=== PATIENT | female | born 1980 | race African-American/Black ===

== ENCOUNTER 2019-05-14 07:42 | Inpatient (IN) ==
[2019-05-14] MEDS ORDERED: OXYTOCIN 30 UNITS/500 ML BAG IV PRN ×2 (07:45→22:26)
[2019-05-14 08:11] LABS: Hematocrit (blood only) 34.7 % (37-47); Hemoglobin 11.4 g/dL (12.0-16.0); Mean Corpuscular Volume 85.3 fL (80-100); Mean Platelet Volume 9.6 fL (7.4-10.4); Platelet Count 369 K/uL (130-400); RDW Coefficient of Variation 14.6 % (11.5-14.5); RDW Standard Deviation 45.3 fL (36.4-46.3); Red Blood Count 4.07 M/uL (4.2-5.4); White Blood Count 11.04 K/uL (4.8-10.8)
[2019-05-14 08:21] LABS: Mean Corpuscular Hgb Conc 32.9 g/dL (32-36)
[2019-05-14] MEDS ORDERED: DINOPROSTONE 10 MG INSERT PV ONE (09:09)
--- NOTE | 2019-05-14 09:13 | Obstetrical Progress Note ---
Date of Service May 14, 2019 Physical Exam Physical Exam: Admit Note 38 F P0000 at 39.2 weeks admitted for induction of labor due to gestational diabetes in insulin. FHt Cat 1. GBS is negative. Cervix 1/50/- 3/vertex/soft/anterior/intact. Will ripen cervix wit Cervidil. Plan for insulin drip while in labor. Results & Data Vital Signs (Past 12 Hours) Vital Signs Temp Pulse Resp BP 05/14/19 08:30 18 05/14/19 07:53 103 H 118/85 05/14/19 07:52 36.9 C 18 05/14/19 07:50 36.9 C 18
[2019-05-14] MEDS ORDERED: SODIUM CHLORIDE 0.9% 1000ML 1,000 ML IV PRN (09:14)
[2019-05-14] MEDS ORDERED: DEXTROSE 50% 50 ML SYRINGE IV PRN (09:14)
--- NOTE | 2019-05-14 09:37 | Obstetrical Progress Note ---
Date of Service May 14, 2019 Physical Exam Physical Exam: Cervidil 10 mg placed vaginally. FHT Cat 1. Results & Data Vital Signs (Past 12 Hours) Vital Signs Temp Pulse Resp BP 05/14/19 08:30 18 05/14/19 07:53 103 H 118/85 05/14/19 07:52 36.9 C 18 05/14/19 07:50 36.9 C 18
[2019-05-14] MEDS: DEXTROSE 5% 1,000 ML IV SCH ×2 (10:35→19:07)
[2019-05-14] MEDS: LACTATED RINGER'S 1,000 ML IV PRN ×3 (13:33→19:04)
[2019-05-14] MEDS ORDERED: TERBUTALINE SULFATE 1 MG/ML VIAL SQ ONE (14:25)
[2019-05-14] MEDS ORDERED: BUPIVACAINE 0.25% 30 ML VIAL ONE (14:28)
[2019-05-14] MEDS ORDERED: ePHEDrine sulfate 50 MG/ML AMP ONE (14:29)
[2019-05-14] MEDS ORDERED: fentaNYL citrate 100 MCG/2 ML VIAL ONE (14:29)
--- NOTE | 2019-05-14 14:29 | Obstetrical Progress Note ---
Date of Service May 14, 2019 Subjective feeling more pain Physical Exam Genitourinary: OB Exam Abdomen: + regular contractions Manual OB Exam: + cervical dilation 3 cm and 4 cm, + cervical effacement 60%, + station high and + amniotic fluid clear OB Exam Monitor Tracing: + external FHT monitor used, + external uterine monitor used, + category II, + normal FHT variability and + variable decelerations Will give Brethine 0.25 mg SQ now fluid bolus re-position on side Results & Data Vital Signs (Past 12 Hours) Vital Signs Temp Pulse Resp BP 05/14/19 13:12 79 127/77 05/14/19 11:27 18 05/14/19 10:30 18 05/14/19 10:00 18 05/14/19 08:30 18 05/14/19 07:53 103 H 118/85 05/14/19 07:52 36.9 C 18 05/14/19 07:50 36.9 C 18
[2019-05-14] MEDS ORDERED: fentaNYL 2MCG/ML ROPIV 1.25MG/ML 100 ML BAG EPI ONE (14:30)
--- NOTE | 2019-05-14 14:43 | Anesthesiology Consultation ---
Date of Service May 14, 2019 Assessment & Plan (1) Encounter for pre-operative examination: Chart Review Chart Review: Acceptable Risk for Labor Epidural History Height/Weight Height: 5 ft 8 in Weight: 104.326 kg Allergies Allergy/AdvReac Type Severity Reaction Status Date / Time amoxicillin Allergy Mild Rash Verified 09/05/18 21:33 Medications Home Medications Medication Instructions Recorded Confirmed Last Taken clindamycin phosphate 1 applic TOPICAL DAILY 05/14/19 05/14/19 05/14/19 insulin glargine 10 unit SUBCUT HS 05/14/19 05/14/19 05/14/19 vit-iron fum-folic ac 1 tab PO DAILY 05/14/19 05/14/19 05/14/19 [ Vitamin] Active Medications Generic Name Dose Route Start Last Admin Trade Name Freq PRN Reason Stop Dose Admin Lactated Ringer's 1,000 mls @ 125 mls/hr 05/14/19 07:45 05/14/19 13:33 Lr IV 05/16/19 07:44 999 mls/hr .Q8H PRN Administration L&D Protocol Protocol Dextrose 1,000 mls @ 100 mls/hr 05/14/19 09:15 05/14/19 10:35 D5w IV 06/13/19 09:14 Not Given .Q10H CATHERINE Protocol NPO Last Intake of Fluids Comment: N/A Date Last Intake of Solids: 05/13/19 Past Medical History Medical History Gestational diabetes No acute medical problems Social History Smoking Status: Never smoker Hx Alcohol Use: No Hx Substance Use: No Physical Exam Vital Signs Last Vital Signs Temp 36.9 C 05/14/19 07:52 Pulse 79 05/14/19 13:12 Resp 18 05/14/19 11:27 BP 127/77 05/14/19 13:12 Testing Laboratory Results 05/14/19 07:54 Blood Type A Positive 05/14/19 07:54 Antibody Screen NEGATIVE 05/14/19 07:54 05/14/19 05/14/19 11:34 08:55 POC Glucose 89 127 H
[2019-05-14] MEDS: INSULIN REGULAR 250 UNITS in SODIUM CHLORIDE 0.9% 247.5 ML IV PRN ×2 (15:06→19:10)
[2019-05-14] MEDS ORDERED: NALOXONE HCL 0.4 MG/1 ML VIAL/CARP IV PRN (15:13)
[2019-05-14] MEDS ORDERED: NALOXONE HCL 1 MG in SODIUM CHLORIDE 0.9% 1000ML 1,000 ML IV PRN (15:13)
[2019-05-14] MEDS ORDERED: fentaNYL 2MCG/ML ROPIV 1.25MG/ML 100 ML BAG EPI PRN (15:13)
[2019-05-14] MEDS ORDERED: ONDANSETRON INJ 2 MG/ML 2 ML VIAL IV PRN (15:13)
[2019-05-14] MEDS ORDERED: ePHEDrine sulfate 50 MG/ML AMP IV PRN (15:13)
--- NOTE | 2019-05-14 19:53 | Obstetrical Progress Note ---
Date of Service May 14, 2019 Physical Exam Genitourinary: Manual OB Exam: + cervical dilation 6 cm, + cervical effacement 100%, + station -1 and + amniotic fluid meconium OB Exam Monitor Tracing: + external FHT monitor used, + external uterine monitor used, + normal FHT variability and + variable decelerations Results & Data Vital Signs (Past 12 Hours) Vital Signs Temp Pulse Resp BP Pulse Ox 05/14/19 19:49 88 106/58 L 05/14/19 19:48 81 100 05/14/19 19:43 81 100 05/14/19 19:38 75 100 05/14/19 19:33 74 100 05/14/19 19:32 75 108/59 L 05/14/19 19:28 79 100 05/14/19 19:23 75 100 05/14/19 19:18 74 112/59 L 100 05/14/19 19:13 76 100 05/14/19 19:08 73 100 05/14/19 19:03 37.0 C 76 18 122/60 100 05/14/19 19:00 18 05/14/19 18:58 75 100 05/14/19 18:53 70 100 05/14/19 18:48 80 100 05/14/19 18:47 85 118/64 05/14/19 18:43 75 100 05/14/19 18:38 74 100 05/14/19 18:34 76 119/56 L 05/14/19 18:33 79 100 05/14/19 18:30 18 05/14/19 18:28 82 100 05/14/19 18:23 78 100 05/14/19 18:18 36.7 C 86 18 122/61 100 05/14/19 18:13 86 100 05/14/19 18:08 94 H 100 05/14/19 18:03 92 H 125/71 100 05/14/19 18:00 18 05/14/19 17:58 86 100 05/14/19 17:53 88 100 05/14/19 17:48 93 H 128/79 100 05/14/19 17:43 96 H 100 05/14/19 17:38 97 H 100 05/14/19 17:33 90 100 05/14/19 17:32 93 H 130/73 05/14/19 17:30 18 05/14/19 17:28 88 100 05/14/19 17:23 93 H 100 05/14/19 17:19 91 H 128/72 05/14/19 17:18 93 H 100 05/14/19 17:13 103 H 100 05/14/19 17:08 98 H 100 05/14/19 17:03 94 H 100 05/14/19 17:02 91 H 117/65 05/14/19 17:00 18 05/14/19 16:58 91 H 100 05/14/19 16:53 88 100 05/14/19 16:48 89 114/65 100 05/14/19 16:43 89 100 05/14/19 16:38 91 H 100 05/14/19 16:34 98 H 128/78 05/14/19 16:33 92 H 100 05/14/19 16:30 18 05/14/19 16:28 103 H 100 05/14/19 16:23 100 H 99 05/14/19 16:19 93 H 134/82 05/14/19 16:18 94 H 100 05/14/19 16:15 36.9 C 05/14/19 16:13 98 H 100 05/14/19 16:08 98 H 100 05/14/19 16:03 95 H 133/80 100 05/14/19 16:00 18 05/14/19 15:58 100 H 100 05/14/19 15:53 95 H 100 05/14/19 15:48 97 H 136/78 100 05/14/19 15:45 18 05/14/19 15:43 93 H 100 05/14/19 15:38 98 H 137/74 100 05/14/19 15:35 96 H 150/70 H 05/14/19 15:33 102 H 100 05/14/19 15:30 18 05/14/19 15:28 94 H 100 05/14/19 15:23 100 H 100 05/14/19 15:18 94 H 100 05/14/19 15:17 94 H 139/72 05/14/19 15:15 96 H 18 133/75 05/14/19 15:13 99 H 100 05/14/19 15:12 100 H 132/80 05/14/19 15:10 18 05/14/19 15:09 96 H 135/81 05/14/19 15:08 103 H 100 05/14/19 15:05 96 H 18 141/77 H 05/14/19 15:03 114 H 100 05/14/19 14:58 101 H 100 05/14/19 14:53 116 H 100 05/14/19 14:15 36.9 C 05/14/19 13:12 79 127/77 05/14/19 11:27 18 05/14/19 10:30 18 05/14/19 10:00 18 05/14/19 08:30 18 05/14/19 07:53 103 H 118/85
[2019-05-14] MEDS ORDERED: HYDROCORTISONE ACETATE 25 MG SUPP PR PRN (22:26)
[2019-05-14] MEDS ORDERED: SUPERCREAM 0.870% 15 GM JAR EXT PRN (22:26)
[2019-05-14] MEDS ORDERED: DIPHTHERIA/TETANUS/PERTUSSIS 0.5 ML SYR/VIAL IM ONE (22:26)
[2019-05-14] MEDS ORDERED: ACETAMINOPHEN 325 MG TAB PO PRN (22:26)
[2019-05-14] MEDS ORDERED: MEASLES, MUMPS & RUBELLA VIRUS VIAL SQ ONE (22:26)
[2019-05-14] MEDS ORDERED: BENZOCAINE 20% AER SPR 82.5 GM CAN EXT PRN (22:26)
[2019-05-14] MEDS ORDERED: BISACODYL 10 MG SUPP PR PRN (22:26)
--- NOTE | 2019-05-14 22:37 | Delivery Summary ---
Vaginal Delivery Summary Date of Service May 14, 2019 Vaginal Delivery Summary Delivery note live male over intact perineum [id number] with delayed cord clamping. Apgars 8/9 weight pending. Cord blood for private donation obtained. Placenta delivered spontaneously and intact. No tears. EBL 250 ml. Final sponge and instrument count are correct. Mom and baby stable.
[2019-05-15 06:43] LABS: Hematocrit (blood only) 29.3 % (37-47); Hemoglobin 9.8 g/dL (12.0-16.0); Mean Corpuscular Hgb Conc 33.4 g/dL (32-36); Mean Corpuscular Volume 85.2 fL (80-100); Mean Platelet Volume 9.6 fL (7.4-10.4); Platelet Count 306 K/uL (130-400); RDW Coefficient of Variation 14.7 % (11.5-14.5); RDW Standard Deviation 45.9 fL (36.4-46.3); Red Blood Count 3.44 M/uL (4.2-5.4); White Blood Count 15.62 K/uL (4.8-10.8)
[2019-05-15] MEDS: FERROUS SULFATE 325 MG TAB PO SCH (07:45)
[2019-05-15] MEDS: PRENATAL VITAMIN 1 TAB PO SCH (07:45)
[2019-05-15] MEDS: DOCUSATE SODIUM 100 MG CAP PO SCH ×2 (07:45→20:25)
[2019-05-15] MEDS ORDERED: CLINDAMYCIN PHOSPHATE TOP SCH (09:00)
[2019-05-15] MEDS ORDERED: NON-FORMULARY MEDICATION (Prenatal Vit-Iron Fum-Folic Ac [Prenatal Vitamin] 1 TAB) PO SCH (09:00)
--- NOTE | 2019-05-15 09:36 | Anesthesia Procedure Note ---
Date of Service May 15, 2019 Anesthesia Post Epidural Note Vital Signs Vital Signs: Temp Pulse Resp BP Pulse Ox 36.7 C 79 18 127/82 99 05/15/19 07:50 05/15/19 07:50 05/15/19 07:50 05/15/19 07:50 05/15/19 07:50 Pain Intensity Abdomen: Pain Intensity: 0 Notes Mental Status: alert / awake / arousable and participated in evaluation Nausea / Vomiting: adequately controlled Pain: adequately controlled Airway Patency, RR, SpO2: stable & adequate BP & HR: stable & adequate Hydration State: stable & adequate Neuraxial Anesthesia: was administered and sensory block is resolving Anesthetic Complications: no major complications apparent and Pt Satisfied with anesthetic care Epidural: Removed without complications and With tip intact
--- NOTE | 2019-05-15 09:41 | Obstetrical Progress Note ---
Date of Service May 15, 2019 Physical Exam Physical Exam: abdomen soft and non tender vaginal bleeding scant to moderate hgb 9.8 no calf tenderness ambulating well Results & Data Vital Signs (Past 12 Hours) Vital Signs Temp Pulse Pulse Resp BP BP Pulse Ox 05/15/19 07:50 36.7 C 79 18 127/82 99 05/15/19 03:45 36.9 C 86 16 124/75 95 05/15/19 00:45 37.4 C 70 18 136/83 99 05/15/19 00:17 81 125/78 05/15/19 00:02 69 123/68 05/14/19 23:47 81 18 130/75 05/14/19 23:33 78 131/74 05/14/19 23:17 79 18 126/80 05/14/19 23:07 88 18 128/81 05/14/19 22:48 86 18 142/66 H 05/14/19 22:33 96 H 18 146/86 H 05/14/19 22:18 37.0 C 93 H 18 138/75 05/14/19 22:03 114 H 136/84 98 05/14/19 21:58 94 H 100 05/14/19 21:53 93 H 100 05/14/19 21:48 81 99 05/14/19 21:47 79 115/71 05/14/19 21:43 79 99
[2019-05-15] MEDS: IBUPROFEN 600 MG TAB PO PRN ×2 (12:21→21:12)
[2019-05-15] MEDS ORDERED: BISACODYL 5 MG TABEC PO SCH (20:00)
[2019-05-16 06:39] LABS: Hematocrit (blood only) 28.5 % (37-47)
[2019-05-16] MEDS: PRENATAL VITAMIN 1 TAB PO SCH (09:29)
[2019-05-16] MEDS: DOCUSATE SODIUM 100 MG CAP PO SCH (09:29)
[2019-05-16] MEDS: FERROUS SULFATE 325 MG TAB PO SCH (09:29)
--- NOTE | 2019-05-16 10:25 | Obstetrical Progress Note ---
Date of Service May 16, 2019 Subjective Patient is seen and examined. She feels well, no complaints. Ambulating without dizziness Voiding without difficulty Tolerating regular diet with out N&V Bleeding is minimal No fever/ chills/ CP/ SOB/ N&V/ Leg pain Breast feeding without problems Vital Signs Temp Pulse Resp BP Pulse Ox 05/15/19 23:30 37.2 C 72 16 127/74 98 05/15/19 21:10 37 C 80 16 133/82 98 05/15/19 15:30 36.9 C 80 20 122/76 05/15/19 12:25 37.2 C 84 18 128/81 98 05/16/19 Range/Units 06:16 Hgb 10.0 L (12.0-16.0) g/dL Hct 28.5 L (37-47) % PE: General: Alert, orientedx3, NAD Abd: soft, NT, fundus firm, below Umbilicus Perineum intact, Lochia rubra minimal Ext; NT, no edema AP: 38 yo s/p , ppd# 2 VSS Afebrile doing well Continue routine care All questions were answered D/C home , f/u in office Results & Data Vital Signs (Past 12 Hours) Vital Signs Temp Pulse Resp BP Pulse Ox 05/15/19 23:30 37.2 C 72 16 127/74 98
[2019-05-16] MEDS: IBUPROFEN 600 MG TAB PO PRN (11:58)
== END 2019-05-16 14:50 | disposition home or self-care (01) | DRG 807 ==
LOC: 4S1 07:42 → 4S2 05-15 01:04

== ENCOUNTER 2023-05-17 08:47 | Inpatient (IN) ==
[2023-05-17] MEDS ORDERED: OXYTOCIN 30 UNITS/500 ML BAG IV PRN ×3 (09:06→16:58)
[2023-05-17] MEDS ORDERED: LIDOCAINE 1% LOCAL 20 ML VIAL INFIL PRN (09:06)
--- NOTE | 2023-05-17 09:16 | History & Physical Report ---
Date of Service May 17, 2023 Assessment & Plan (1) Encounter for pre-operative examination: Plan: induction of labor for AMA (2) AMA (advanced maternal age) multigravida 35+: Present on Admission?: Yes Plan Admit to L and D Routine labs Pitocin to start to augment labor pain meds including epidural as the pt desires regular diet x 1 then NPO/IV Fluids Admission and Anticipated Discharge Date Admission Date: May 17, 2023 History of Present Illness Chief Complaint: Pt 42 yr old induction of labor for AMA Primary Care Provider: Sarah Mirza, Pt denies regular uterine contractions, vaginal bleeding, leaking of fluid per vagina etc. Reports good movement. Allergies Allergy/AdvReac Type Severity Reaction Status Date / Time amoxicillin Allergy Mild Rash Verified 09/05/18 21:33 Home Medications Medication Instructions Recorded Confirmed Type clindamycin phosphate 1 % lotion 1 applic topical DAILY 05/14/19 05/14/19 History vitamins-iron fumarate 27 1 tab PO DAILY 05/14/19 05/14/19 History mg iron-folic acid 0.8 mg tablet ( Vitamin) docusate sodium 100 mg capsule 100 mg PO DAILY@08,21 #60 caps 05/16/19 Rx ferrous sulfate 325 mg (65 mg 325 mg PO DAILY@08 #30 tabs 05/16/19 Rx iron) tablet,delayed release Past Med/Surg History Medical History (Updated 05/17/23 @ 09:14 by Liliana Giang MD) Gestational diabetes No acute medical problems Social History Smoking Status: Never smoker Second Hand Exposure: No; Hx Alcohol Use: No Hx Substance Use: No Preferred Language: Pashto Communication Ability: Effective Artificial Foliage Arranger Required: No Beliefs That Will Affect Care: None marital status: Current Living Situation: Spouse Feels Safe at Home: Yes Assistive Devices: None Review of Systems Review of Systems: All systems reviewed & are unremarkable except as noted in HPI & below Constitutional: as per Subjective / HPI Respiratory: as per Subjective / HPI Cardiovascular: as per Subjective / HPI Gastrointestinal: as per Subjective / HPI Genitourinary: as per Subjective / HPI Physical Exam Constitutional: WD/WN, vitals as above Respiratory: normal respiratory effort, lungs clear to auscultation Cardiovascular: RRR, no murmur, no edema Chest (Breasts): normal inspection/palpation of breasts Skin: no rashes, warm and dry Psychiatric: A+Ox3, euthymic affect Genitourinary: no vaginal lesions, no adnexal mass Manual OB Exam: + cervical dilation 3 cm, + cervical effacement 70% and + station -2 OB Exam Monitor Tracing: + external FHT monitor used, + category I and + normal FHT variability Results & Data Results & Data Vital Signs (Past 12 Hours) Vital Signs Pulse BP 05/17/23 08:58 95 H 129/70
[2023-05-17 09:57] LABS: Hematocrit (blood only) 29.4 % (37.0-47.0); Hemoglobin 10.1 g/dl (12.0-16.0); Mean Corpuscular Hemoglobin 30.4 pg (25.0-34.0); Mean Corpuscular Hgb Conc 34.4 g/dL (32.0-36.0); Mean Corpuscular Volume 88.6 fL (80.0-100.0); Mean Platelet Volume 9.8 fL (9.4-12.4); Platelet Count 307 K/uL (130-400); RDW Coefficient of Variation 14.6 % (11.5-14.5); RDW Standard Deviation 47.5 fL (36.4-46.3); Red Blood Count 3.32 M/uL (4.20-5.40); White Blood Count 10.38 K/ul (4.8-10.8)
[2023-05-17] MEDS: LACTATED RINGER'S 1,000 ML IV PRN ×2 (10:10→15:07)
[2023-05-17] MEDS ORDERED: FAMOTIDINE 20 MG TAB PO ONE (15:33)
[2023-05-17] MEDS ORDERED: LIDOCAINE 2%/EPINEPHRINE 1:200,000 20 ML PF ONE (15:47)
[2023-05-17] MEDS ORDERED: ePHEDrine sulfate 50 MG/ML AMP ONE (15:47)
[2023-05-17] MEDS ORDERED: SODIUM CHLORIDE 0.9% PF INJ 10 ML VIAL ONE (15:47)
[2023-05-17] MEDS ORDERED: fentaNYL citrate PF 100 MCG/2 ML VIAL ONE (15:47)
[2023-05-17] MEDS ORDERED: BUPIVACAINE 0.25% PF 30 ML VIAL ONE (15:47)
[2023-05-17] MEDS ORDERED: fentaNYL 2MCG/ML ROPIVACAINE 1.25MG/ML 100 ML BAG EPI ONE (15:48)
--- NOTE | 2023-05-17 15:58 | Anesthesiology Consultation ---
Date of Service May 17, 2023 Assessment & Plan Chart Review Chart Review: Acceptable Risk for Labor Epidural Consults Requested none ASA ASA2 Proposed Anesthesia Anesthesia Type: Labor Epidural Risk / Benefits Reviewed With: PT / POA / Parent / Guardian, Accepts Plan and Informed Consent Obtained History Height/Weight Height: 5 ft 8.5 in Weight: 97.069 kg Allergies Allergy/AdvReac Type Severity Reaction Status Date / Time amoxicillin Allergy Mild Rash Verified 05/17/23 13:11 Sulfa (Sulfonamide AdvReac Unknown Verified 05/17/23 13:08 Antibiotics) Medications Home Medications Medication Instructions Recorded Confirmed Last Taken vitamins-iron fumarate 27 1 tab PO DAILY 05/14/19 05/17/23 05/17/23 08:00 mg iron-folic acid 0.8 mg tablet ( Vitamin) iron sucrose 50 mg iron/2.5 mL 300 mg IV SPACE Anemia 05/17/23 05/17/23 05/03/23 intravenous solution nutritional supplement-fiber oral 2 ea PO DAILY Dietary Supplement. 05/17/23 05/17/23 05/17/23 08:00 liquid Active Medications Generic Name Dose Route Start Last Admin Trade Name Freq PRN Reason Stop Dose Admin Oxytocin 30 units in 500 mls @ 10 mls/hr 05/17/23 09:06 05/17/23 15:15 Pitocin IV 05/19/23 09:05 0.6 units/hr .Q24H PRN 10 mls/hr Labor Induction/Augmentation Titration Protocol 0.6 UNITS/HR Lactated Ringer's 1,000 mls @ 125 mls/hr 05/17/23 09:06 05/17/23 15:07 Lr IV 05/19/23 09:05 125 mls/hr .Q8H PRN Administration L&D Protocol Protocol NPO Date Last Intake of Fluids: 05/17/23 Time Last Intake of Fluids: 15:30 Date Last Intake of Solids: 05/17/23 Time Last Intake of Solids: 05:30 Past Medical History Medical History Gestational diabetes GDM with last . No acute medical problems Exercise / Class Metabolic Activity II 4-5 Yardwork/Stairs/Walk up hill Past Anesthesia History No Hx of Anesthesia Complications and No Family Hx of Anesthesia Complications Social History Smoking Status: Never smoker Hx Alcohol Use: No Hx Substance Use: No substance use type: does not use Physical Exam Vital Signs Last Vital Signs Temp 37.1 C 05/17/23 14:43 Pulse 84 05/17/23 15:45 Resp 20 05/17/23 14:43 BP 121/68 05/17/23 15:45 ENMT Mouth: no TMJ abnormality Thyromental Distance: > or= 3.5 Finger Breadths Mallampati Class: II Neck normal visual inspection and trachea midline; neck extension not limited Respiratory normal respiratory effort Auscultation: lungs clear to auscultation bilaterally Cardiovascular Rate/Rhythm: regular rate and regular rhythm Heart Sounds: no murmur Musculoskeletal Spine: normal cervical ROM Extremities: full ROM of extremities Neurologic moves all extremities Psychiatric Orientation: alert and oriented x 3 Testing Laboratory Results 05/17/23 09:39 Blood Type A Positive 05/17/23 09:42 Antibody Screen NEGATIVE 05/17/23 09:42
[2023-05-17] MEDS ORDERED: BUPIVACAINE 0.25% PF 30 ML VIAL EPI STA (16:22)
[2023-05-17] MEDS ORDERED: NALOXONE HCL 0.4 MG/1 ML VIAL/CARP IV PRN (16:22)
[2023-05-17] MEDS ORDERED: NALOXONE HCL 1 MG in SODIUM CHLORIDE 0.9% 1000ML 1,000 ML IV PRN (16:22)
[2023-05-17] MEDS ORDERED: SODIUM CHLORIDE 0.9% PF INJ 10 ML VIAL EPI STA (16:22)
[2023-05-17] MEDS ORDERED: METOCLOPRAMIDE HCL 20 MG in SODIUM CHLORIDE 0.9% 50 ML IV PRN (16:22)
[2023-05-17] MEDS ORDERED: SODIUM CHLORIDE 0.9% PF INJ 10 ML VIAL EPI PRN (16:22)
[2023-05-17] MEDS ORDERED: fentaNYL citrate PF 100 MCG/2 ML VIAL EPI PRN (16:22)
[2023-05-17] MEDS ORDERED: BUPIVACAINE 0.25% PF 30 ML VIAL EPI PRN (16:22)
[2023-05-17] MEDS ORDERED: fentaNYL 2MCG/ML ROPIVACAINE 1.25MG/ML 100 ML BAG EPI PRN (16:22)
[2023-05-17] MEDS ORDERED: fentaNYL citrate PF 100 MCG/2 ML VIAL EPI STA (16:22)
[2023-05-17] MEDS ORDERED: LIDOCAINE 2% MPF LOCAL 5 ML VIAL EPI PRN (16:22)
[2023-05-17] MEDS ORDERED: LIDOCAINE 2%/EPINEPHRINE 1:200,000 20 ML PF EPI STA (16:22)
[2023-05-17] MEDS ORDERED: ONDANSETRON INJ 2 MG/ML 2 ML VIAL IV PRN (16:22)
[2023-05-17] MEDS ORDERED: NALBUPHINE HCL INJ 10 MG/ML AMP IV PRN (16:22)
[2023-05-17] MEDS ORDERED: diphenhydrAMINE 50 MG/ML VIAL IV PRN (16:22)
[2023-05-17] MEDS ORDERED: ePHEDrine sulfate 50 MG/ML AMP IV PRN (16:22)
[2023-05-17] MEDS ORDERED: ROPIVACAINE 0.5% PF 5 MG/ML 20 ML VIAL EPI PRN (16:22)
--- NOTE | 2023-05-17 16:46 | Obstetrical Progress Note ---
Date of Service May 17, 2023 Results & Data Vital Signs (Past 12 Hours) Vital Signs Temp Pulse Resp BP Pulse Ox 05/17/23 09:33 36.7 C 95 H 18 129/70 05/17/23 16:41 98 05/17/23 16:41 103 H 05/17/23 16:36 100 05/17/23 16:36 111 H 05/17/23 16:31 100 05/17/23 16:31 105 H 05/17/23 16:31 133/59 L 05/17/23 16:28 92 H 05/17/23 16:28 120/58 L 05/17/23 16:26 100 05/17/23 16:26 95 H 05/17/23 16:21 89 05/17/23 16:21 128/57 L 05/17/23 16:21 100 05/17/23 16:21 97 H 05/17/23 16:16 99 H 05/17/23 16:16 127/59 L 05/17/23 16:16 100 05/17/23 16:16 95 H 05/17/23 16:11 93 H 05/17/23 16:11 119/57 L 05/17/23 16:11 98 05/17/23 16:11 103 H 05/17/23 16:06 100 05/17/23 16:06 98 H 05/17/23 16:01 89 L 05/17/23 16:01 103 H 05/17/23 15:56 100 05/17/23 15:56 92 H 05/17/23 15:45 84 05/17/23 15:45 121/68 05/17/23 14:43 20 05/17/23 14:43 37.1 C 20 05/17/23 14:44 80 05/17/23 14:44 122/75 05/17/23 12:54 82 05/17/23 12:54 119/76 05/17/23 10:55 86 05/17/23 10:55 114/66 05/17/23 08:57 18 05/17/23 08:57 36.7 C 18 05/17/23 08:58 95 H 129/70
--- NOTE | 2023-05-17 16:49 | Operative Report ---
Post Operative Report Pre & Post Diagnosis vaginal delivery I identified the patient and participated in the time-out.: Yes Procedure Surgeon Liliana Giang MD Professional Volleyball Player nurse Estimated Blood Loss 300 Findings Consistent with Post-Op Diagnosis ( ) Specimens patholgy Description of Procedure vaginal delivery I attest to the content of the Intraoperative Record and any orders documented therein. Any exceptions are noted below. Supervising Physician Co-Signing Physician Notes Dr. Marianela Giang MD
--- NOTE | 2023-05-17 16:49 | History & Physical Bridge Note ---
Date of Service May 17, 2023 History & Physical Bridge Note I have examined the patient, reviewed the History & Physical and in the interval since the performance of the History & Physical I have noted the following changes of clinical significance: no changes noted
--- NOTE | 2023-05-17 16:57 | Obstetrical Progress Note ---
Date of Service May 17, 2023 Assessment & Plan Admission and Anticipated Discharge Date Admission Date: May 17, 2023 Supervising Physician Co-Signing Physician Notes DR. Marianela Giang MD Subjective Pt fully dilated and pushing, placed in dorsal lithotomy position, prepped and draped in usual fashion, pt pushed for couple of minutes, delivered alive viable female in DILCIA position, placed the on the mothers abdomen, bulb suctioned nose and mouth, cord clamped and cut by the FOB. placenta delivered spontaneously and complete. Primary perineal lacerations noted. repaired with 3.0 Vicryl. Cord blood collected and placenta sent to pathology for 47 xxx condition. Pt tolerated the procedure well. Pt desires to breast feed the baby. APGARS: 8, 9 at 1 and 5 min EBL.: 300 cc Results & Data Vital Signs (Past 12 Hours) Vital Signs Temp Pulse Resp BP Pulse Ox 05/17/23 09:33 36.7 C 95 H 18 129/70 05/17/23 16:51 97 05/17/23 16:51 109 H 05/17/23 16:46 112 H 05/17/23 16:46 113/57 L 05/17/23 16:46 99 05/17/23 16:41 98 05/17/23 16:41 103 H 05/17/23 16:36 100 05/17/23 16:36 111 H 05/17/23 16:31 100 05/17/23 16:31 105 H 05/17/23 16:31 133/59 L 05/17/23 16:28 92 H 05/17/23 16:28 120/58 L 05/17/23 16:26 100 05/17/23 16:26 95 H 05/17/23 16:21 89 05/17/23 16:21 128/57 L 05/17/23 16:21 100 05/17/23 16:21 97 H 05/17/23 16:16 99 H 05/17/23 16:16 127/59 L 05/17/23 16:16 100 05/17/23 16:16 95 H 05/17/23 16:11 93 H 05/17/23 16:11 119/57 L 05/17/23 16:11 98 05/17/23 16:11 103 H 05/17/23 16:06 100 05/17/23 16:06 98 H 05/17/23 16:01 89 L 05/17/23 16:01 103 H 05/17/23 15:56 100 05/17/23 15:56 92 H 05/17/23 15:45 84 05/17/23 15:45 121/68 05/17/23 14:43 20 05/17/23 14:43 37.1 C 20 05/17/23 14:44 80 05/17/23 14:44 122/75 05/17/23 12:54 82 05/17/23 12:54 119/76 05/17/23 10:55 86 05/17/23 10:55 114/66 05/17/23 08:57 18 05/17/23 08:57 36.7 C 18 05/17/23 08:58 95 H 129/70
[2023-05-17] MEDS ORDERED: IBUPROFEN 600 MG TAB PO PRN (16:58)
[2023-05-17] MEDS ORDERED: DIPHTHERIA/TETANUS/PERTUSSIS Vaccine (Tdap, Age 7+yrs) 0.5mL SYR/VL IM ONE (16:58)
[2023-05-17] MEDS ORDERED: bisacodyL 10 MG SUPP PR PRN (16:58)
[2023-05-17] MEDS ORDERED: HYDROCORTISONE ACETATE 25 MG SUPP PR PRN (16:58)
[2023-05-17] MEDS ORDERED: BENZOCAINE 20% SPRY 85 APPLN/85 GM CAN EXT PRN (16:58)
--- NOTE | 2023-05-17 16:58 | Anesthesia Procedure Note ---
Date of Service May 17, 2023 Anesthesia Post Epidural Note Vital Signs Vital Signs: Temp Pulse Resp BP Pulse Ox 37.1 C 109 H 20 113/57 L 97 05/17/23 14:43 05/17/23 16:51 05/17/23 14:43 05/17/23 16:46 05/17/23 16:51 Notes Mental Status: alert / awake / arousable and participated in evaluation Nausea / Vomiting: adequately controlled Pain: adequately controlled Airway Patency, RR, SpO2: stable & adequate BP & HR: stable & adequate Hydration State: stable & adequate Neuraxial Anesthesia: was administered and sensory block is resolving Anesthetic Complications: no major complications apparent and Pt Satisfied with anesthetic care Epidural: Removed without complications and With tip intact
[2023-05-17] MEDS: DOCUSATE SODIUM 100 MG CAP PO SCH (21:16)
[2023-05-18] MEDS: ACETAMINOPHEN 325 MG TAB PO PRN ×2 (00:10→16:20)
[2023-05-18 06:26] LABS: Hematocrit (blood only) 29.6 % (37.0-47.0); Hemoglobin 10.3 g/dl (12.0-16.0); Mean Corpuscular Hemoglobin 30.6 pg (25.0-34.0); Mean Corpuscular Hgb Conc 34.8 g/dL (32.0-36.0); Mean Corpuscular Volume 87.8 fL (80.0-100.0); Mean Platelet Volume 10.1 fL (9.4-12.4); Platelet Count 291 K/uL (130-400); RDW Coefficient of Variation 14.7 % (11.5-14.5); RDW Standard Deviation 47.8 fL (36.4-46.3); Red Blood Count 3.37 M/uL (4.20-5.40); White Blood Count 15.11 K/ul (4.8-10.8)
[2023-05-18] MEDS ORDERED: PRENATAL VITAMIN 1 TAB PO SCH (08:00)
[2023-05-18] MEDS: DOCUSATE SODIUM 100 MG CAP PO SCH (09:07)
--- NOTE | 2023-05-18 10:15 | Obstetrical Progress Note ---
Date of Service May 18, 2023 Subjective Ambulation: ambulating normally Voiding: no voiding problems Passing Gas:: Yes Diet Tolerance:: regular diet Lochia:: Small Feeding Type:: breast feeding Current Pain Level(1-10): 0 Physical Exam Constitutional WD/WN, vitals as above Gastrointestinal (Abdomen) Inspection/Auscultation: abdomen normal to inspection fundus firm abdomen soft and non-tender Musculoskeletal Extremities: extremities normal to inspection Skin no rashes, warm and dry Neurologic patellar DTR's 2+ bilat, sensation intact Results & Data Vital Signs (Past 12 Hours) Vital Signs Temp Pulse Resp BP Pulse Ox O2 Del Method 05/18/23 08:10 36.8 C 73 20 112/75 98 Room Air 05/18/23 03:55 36.5 C 77 16 120/79 97 Room Air 05/17/23 23:50 36.7 C 85 18 119/76 98 Room Air Laboratory Results 05/17/23 05/17/23 05/18/23 09:39 09:42 05:58 WBC 10.38 15.11 H RBC 3.32 L 3.37 L Hgb 10.1 L 10.3 L Hct 29.4 L 29.6 L MCV 88.6 87.8 MCH 30.4 30.6 MCHC 34.4 34.8 RDW Std Deviation 47.5 H 47.8 H RDW Coeff of Lorna 14.6 H 14.7 H Plt Count 307 291 MPV 9.8 10.1 Blood Type A Positive Antibody Screen NEGATIVE
[2023-05-18] MEDS ORDERED: bisacodyL 5 MG TABEC PO SCH (20:00)
== END 2023-05-18 18:22 | disposition home or self-care (01) | DRG 807 ==
LOC: 4S1 08:47 → 4E1 20:42